=== PATIENT | female | born 1995 | race Caucasian/White ===

== ENCOUNTER → 2024-08-26 15:09 | Outpatient (CLI) | payer OTHER, SELFPAY ==
[2024-08-26 20:49] LABS: Urine Chlamydia NOT DETECTED; Urine N gonorrhoeae NOT DETECTED
== END ==
PROVIDERS: Visit Provider Student in an Organized Health Care Education/Training Program
DX: Z11.3 Encounter for screening for infections with a predominantly sexual mode of transmission (principal)
CPT/HCPCS: 87491; 87591

== ENCOUNTER → 2024-08-26 15:29 | Outpatient (CLI) | payer OTHER, SELFPAY ==
[2024-08-26 16:41] LABS: Add Manual Diff / Slide Review NO; Basophils Absolute Auto 0 /uL (0-100); Basophils Percent Auto 0.5 % (0-2); Eosinophils Absolute Auto 0 /uL (0-450); Eosinophils Percent Auto 0.6 % (2-4); Hematocrit 41.6 % (36-46); Hemoglobin 14.5 g/dL (12.0-16.0); Lymphocytes Absolute Auto 2000 /uL (1100-4500); Lymphocytes Percent Auto 26.1 % (25-40); Mean Corpuscular HGB Conc 34.9 % (30-36); Mean Corpuscular Hemoglobin 32.3 PG (26-34); Mean Corpuscular Volume 92.5 fL (80-100); Monocytes Absolute Auto 400 /uL (0-900); Monocytes Percent Auto 4.8 % (3-14); Neutrophils Absolute Auto 5200 /uL (1500-7000); Platelet Count 256 X10^3/uL (150-400); White Blood Cell Count 7.7 X10^3/uL (4.5-11.0)
[2024-08-26 17:43] LABS: Hepatitis B Surface Antigen NEGATIVE s/c (NEGATIVE); Rubella Antibody IgG 16.9 IU/mL (>15)
[2024-08-26 17:56] LABS: HIV 1 & 2 Ab/Ag 4th Gen Combo NEGATIVE (NEGATIVE); Hep C Virus Ab w/Reflex Quant NEGATIVE s/c (NEGATIVE)
[2024-08-28 05:15] LABS: RPR Screen Non Reactive (Non Reactive)
[2024-08-28 06:07] LABS: Varicella IgG Antibody Reactive (Non Reactive)
== END ==
PROVIDERS: Referring Provider Student in an Organized Health Care Education/Training Program; Visit Provider Student in an Organized Health Care Education/Training Program
DX: Z34.80 Encounter for supervision of other normal pregnancy, unspecified trimester (principal); Z11.3 Encounter for screening for infections with a predominantly sexual mode of transmission
CPT/HCPCS: 36415; 80055; 86787; 86803; 86850; 86900; 86901; 87389; 87491; 87591

== ENCOUNTER → 2024-09-03 14:14 | Outpatient (CLI) | payer OTHER, SELFPAY ==
[2024-09-03 15:32] LABS: Natera Collection Specimen Collected
== END ==
PROVIDERS: Referring Provider Student in an Organized Health Care Education/Training Program; Visit Provider Student in an Organized Health Care Education/Training Program
DX: Z34.81 Encounter for supervision of other normal pregnancy, first trimester (principal); Z3A.10 10 weeks gestation of pregnancy
CPT/HCPCS: 36415

== ENCOUNTER → 2024-11-11 14:58 | Outpatient (CLI) | payer OTHER, SELFPAY ==
--- NOTE | 2024-11-11 14:58 | DI.US.S_ITS ---
PROCEDURE: US OB >= 14 WEEKS FETUS INDICATIONS: 20 week anatomy scan OUTSIDE/PRIOR DATING DATA: Last menstrual period (LMP): 06/23/2024. LMP-based estimated date of delivery (SMITH): 03/30/2025. First dating scan (date and location): 08/26/2024. Estimated date of delivery (SMITH) from first dating scan: 04/01/2025. The calculations are made using the clinical SMITH of 03/30/2025. TECHNIQUE: Real-time scanning was performed of the fetus, with image documentation and biometric measurements. Endovaginal scanning: Not performed COMPARISON: [facility], , OB >= 14 WEEKS FETUS, 10/04/2024, 16:14. FINDINGS: General: A single living intrauterine gestation is present. Presentation: Breech. Placenta: Placental position is posterior , placenta appears low lying, approximately 1.4-2.1 centimeters from the internal Oz. Amniotic fluid index: 10 cm, normal range is 5-24 cm. Single deepest vertical pocket is 3.5 cm. heart rate: 137 beats per minute. Maternal cervical canal: 3.6 cm long. Normal lower limit is 2.5 cm. biometrics: Biparietal diameter: 4.4 centimeters, 19 weeks 2 days Head circumference: 17.4 centimeters, 20 weeks 0 days Abdominal circumference: 16.1 centimeters, 21 weeks 1 day Femur length: 3.4 centimeters, 20 weeks 6 days Clinically estimated gestational age: 20 weeks 1 day Composite gestational age from present scan: 20 weeks 2 days Estimated weight and percentile: 380 grams, 82 percent Anatomic survey: Neuro: Ventricles are non-dilated at less than 10 mm. Cisterna magna is normal at 3-11 mm. Cerebellum is normal in size and morphology. Nuchal skin fold: Normal at less than 6 mm between 14-21 weeks gestational age. Face: Nose and lips are normal. Facial profile is not well seen. Spine: No evidence for spina bifida. Heart: Four-chamber heart and outflow tracts are not well seen. Diaphragm: Diaphragm is intact. Stomach: Left-sided stomach is present. Kidneys: No hydronephrosis. Normal is less than 5 mm in 2nd trimester, less than 7 mm in 3rd trimester. Cord: 3-vessel cord has orthotopic insertion. Bladder: Normal in size. Extremities: All 4 extremities identified. IMPRESSION: 1. Single live intrauterine consistent with 20 weeks and 2 days. 2. Placenta appears low lying approximately 1.4 - 2.1 centimeters from the internal os. Recommend short-term follow-up with transvaginal exam. 3. The four-chamber heart, outflow tracts and facial profile are not well seen. Recommend short-term follow-up ultrasound. The remainder of the anatomic survey is within normal limits. We strive to produce accurate, complete, and clear reports of imaging services. To assist us in improving patient care, this report was composed using standard report templates and voice recognition software. Therefore, it may contain abnormal punctuation, insertions and/or omissions. Occasional wrong-word or sound-alike substitutions may occur. Though we review the report and make efforts to correct it, we do recommend that the report be read carefully in proper context to recognize any text inaccuracies. Dictated by: Joselo Ross M.D. on 11/12/2024 at 9:12 Approved by: Joselo Ross M.D. on 11/12/2024 at 9:17
== END ==
PROVIDERS: Referring Provider Student in an Organized Health Care Education/Training Program; Visit Provider Student in an Organized Health Care Education/Training Program
DX: Z36.0 Encounter for antenatal screening for chromosomal anomalies (principal); Z3A.20 20 weeks gestation of pregnancy
CPT/HCPCS: 76811

== ENCOUNTER → 2024-11-26 13:33 | Outpatient (CLI) | payer OTHER, SELFPAY ==
--- NOTE | 2024-11-26 13:34 | DI.US.S_ITS ---
PROCEDURE: US OB FOLLOW UP INDICATIONS: Anatomy scan f/u OUTSIDE/PRIOR DATING DATA: Last menstrual period (LMP): 06/23/2024. LMP-based estimated date of delivery (SMITH): 03/30/2025. First dating scan (date and location): 08/26/2024. Estimated date of delivery (SMITH) from first dating scan: 04/01/2025. The calculations are made using the working SMITH of 03/30/2025. TECHNIQUE: Real-time scanning was performed of the fetus, with image documentation and biometric measurements. Endovaginal scanning: No COMPARISON: None. FINDINGS: General: A single living intrauterine gestation is present. Presentation: Variable Placenta: Placental position is posterior , without previa. Amniotic fluid index: 10.5 cm, normal range is 5-24 cm. Single deepest vertical pocket is 3.7 cm. heart rate: 160 beats per minute. Maternal cervical canal: 3.3 cm long. Normal lower limit is 2.5 cm. biometrics: Clinically estimated gestational age: 22 week 2 day Anatomic survey: Facial profile, cardiac four-chamber and outflow track well visualized and within normal limits. IMPRESSION: Single live intrauterine consistent with 22 week 2 day gestation. Facial profile and cardiac views are within normal limits completing a normal anatomic survey Approved by: Grant Morris M.D. on 11/26/2024 at 17:41
== END ==
PROVIDERS: Referring Provider Student in an Organized Health Care Education/Training Program; Visit Provider Student in an Organized Health Care Education/Training Program
DX: Z34.82 Encounter for supervision of other normal pregnancy, second trimester (principal); Z3A.22 22 weeks gestation of pregnancy
CPT/HCPCS: 76816

== ENCOUNTER → 2025-01-01 11:59 | Outpatient (CLI) | payer OTHER, SELFPAY ==
[2025-01-01 14:59] LABS: Hematocrit 39.4 % (36-46); Hemoglobin 13.6 g/dL (12.0-16.0)
[2025-01-01 15:35] LABS: GTT (PREG) 1 Hour PP 50gm Dose 116 mg/dL (76-139)
== END ==
PROVIDERS: Referring Provider Student in an Organized Health Care Education/Training Program; Visit Provider Student in an Organized Health Care Education/Training Program
DX: Z13.1 Encounter for screening for diabetes mellitus (principal); Z13.0 Encounter for screening for diseases of the blood and blood-forming organs and certain disorders involving the immune mechanism
CPT/HCPCS: 36415; 82950; 85014; 85018

== ENCOUNTER 2025-02-15 14:32 | Observation (INO) | payer OTHER, SELFPAY ==
--- NOTE | 2025-02-15 15:22 | DI.US.S_ITS ---
PROCEDURE: US OB LIMITED INDICATIONS: BLEEDING OUTSIDE/PRIOR DATING DATA: Working SMITH is 03/30/2025 TECHNIQUE: Real-time scanning was performed of the fetus, with image documentation. Endovaginal scanning: Yes COMPARISON: None. FINDINGS: A single living intrauterine gestation is present. Presentation: Vertex. Placenta: Placental position is posterior, without previa. Amniotic fluid index: 7.4 cm, normal range is 5-24 cm. Single deepest vertical pocket is 4.1 cm. heart rate: 152 beats per minute. Maternal cervical canal: 4.3 cm long. Normal lower limit is 2.5 cm. Clinically estimated gestational age: 33 weeks and 6 days No definite abruption identified. Prominent urinary bladder IMPRESSION: No definite abruption identified on ultrasound. ELIOT measures 7.4 cm, lower limit of normal. Prominent urinary bladder. Follow-up imaging is suggested for these findings Vertex presentation. Dictated by: Geoffrey Stringer M.D. on 02/15/2025 at 16:15 Approved by: Geoffrey Stringer M.D. on 02/15/2025 at 16:17
[2025-02-15 15:38] LABS: Bilirubin Urine UA NEGATIVE (NEGATIVE); Color Urine UA YELLOW; Glucose Urine UA NEGATIVE (Negative); Ketones Urine UA 1+ (NEGATIVE); Leukocyte Esterase Urine UA 3+ (NEGATIVE); Nitrite Urine UA NEGATIVE (Negative); Occult Blood Urine UA 3+ (Negative); Protein Urine UA NEGATIVE (Negative); Specific Gravity Urine UA 1.020 (1.000-1.035); Urobilinogen Urine UA 0.2 E.U./dL (0.2)
[2025-02-15 15:44] LABS: Appearance Urine UA CLOUDY; pH Urine UA 6.0 (4.5-8.0)
[2025-02-15 15:51] LABS: Culture Indicated Urine Specimen Cultured
--- NOTE | 2025-02-15 16:57 | P.TNLD_ITS ---
Visit Information Visit Information Date of evaluation: 02/15/25 Primary OB Provider: Archana Carvajal On-call OB Provider: Brian Aguilar Reason for Evaluation: Yes other Vital Signs Vital Signs: 29-year-old at GA 33+6 weeks. Presents with complaint of pelvic cramping and BRB when wiping after void. Denies recent intercourse or other vaginal insertion. Endorses normal movement, denies leakage of fluid. course notable for previous low-lying placenta that has now resolved. Chart review notable for previous episodes of vaginal spotting/bleeding with no clear source identified. [facility] Surgical History (Updated 08/08/24 @ 13:06 by Bess Saunders RN) No pertinent past surgical history Social History marital status: number of children: 1 household members: spouse and children lives independently: Yes caregiver/support person: Yes housing: house pets and animals: No education level: high school occupational status: unemployed current occupational exposures/hazards: No special bladimir needs: No travel history: over 6 months ago seatbelt use: always water heater temp set < 120 deg: No (will ask to turn it down) working smoke detector in home: Yes fire extinguisher in home: Yes carbon monox detector in home: Yes firearms in home: No do you feel safe at home: Yes second hand exposure: Yes ( vapes outside) alcohol intake: never substance use type: does not use during the past year weight has: remained stable well-balanced diet: about half the time daily servings fruits/ve-4 caffeine: No Type(s) of exercise: walking duration: 15-30 minutes/day Review of Systems Review of Systems ROS: Yes All systems reviewed with the patient and are negative except as otherwise documented Objective Labs Labs: Laboratory Results - last 24 hr 02/15/25 14:45 Urine Color Yellow Urine Appearance Cloudy Urine pH 6.0 Ur Specific [place] 1.020 Urine Protein Negative Urine Glucose (UA) Negative Urine Ketones 1+ H Urine Occult Blood 3+ H Urine Nitrate Negative Urine Bilirubin Negative Urine Urobilinogen 0.2 Ur Leukocyte Esterase 3+ H Urine RBC 10-30/hpf H Urine WBC 30-100/hpf H Ur Squamous Epith Cells 5-10 /hpf H Urine Bacteria Many (>30) H Ur Culture Indicated? Specimen cultured Vol Urine Centrifuged 10ml (spun) Evaluation Evaluation Baseline heart rate: 150 Variability: Moderate (6-25) monitor accelerations: Present Monitor Decelerations: Absent Category of Tracing: Reactive Status: Category l Diagnosis, Plan/Disposition Final Diagnosis (1) UTI in : Status: Acute (2) Vaginal bleeding during : Status: Acute Plan/Disposition Plan: NST reactive with category 1 FHT. Ultrasound demonstrates adequate ELIOT and normal cervical length with no evidence of abruption. No blood on removal of transvaginal probe, source unlikely vaginal. UA grossly abnormal with large RBC, WBC, and leuk esterase indicating likely UTI. Treat with empiric Keflex, monitor culture for sensitivities. Discharge home with return precautions. OB Disposition: home
[2025-02-15 18:47] LABS: Urine N gonorrhoeae NOT DETECTED
[2025-02-15 18:51] LABS: Urine Chlamydia NOT DETECTED
== END 2025-02-15 17:31 | disposition home or self-care (01) ==
PROVIDERS: Admitting Provider Obstetrics & Gynecology; Referring Provider Obstetrics & Gynecology; Visit Provider Family Medicine
DX: O23.43 Unspecified infection of urinary tract in pregnancy, third trimester (principal); N39.0 Urinary tract infection, site not specified; O46.93 Antepartum hemorrhage, unspecified, third trimester; Z3A.33 33 weeks gestation of pregnancy
CPT/HCPCS: 59025; 76815; 76817; 81001; 87086; 87491; 87591; G0378; G0379

== ENCOUNTER 2025-02-28 13:26 | Outpatient (CLI) | payer OTHER, SELFPAY ==
--- NOTE | 2025-02-28 13:57 | P.TNLD_ITS ---
Visit Information Visit Information Date of evaluation: 02/28/25 Primary OB Provider: Archana Carvajal On-call OB Provider: Archana Carvajal Reason for Evaluation: Yes other Comments/Additional reasons for admission: triage assessment, decreased FM Vital Signs Vital Signs: maternal VSS wnl/afebrile, reviewed in OBIX [facility] Surgical History (Updated 08/08/24 @ 13:06 by Bess Saunders RN) No pertinent past surgical history Social History marital status: number of children: 1 household members: spouse and children lives independently: Yes caregiver/support person: Yes housing: house pets and animals: No education level: high school occupational status: unemployed current occupational exposures/hazards: No special bladimir needs: No travel history: over 6 months ago seatbelt use: always water heater temp set < 120 deg: No (will ask to turn it down) working smoke detector in home: Yes fire extinguisher in home: Yes carbon monox detector in home: Yes firearms in home: No do you feel safe at home: Yes second hand exposure: Yes ( vapes outside) alcohol intake: never substance use type: does not use during the past year weight has: remained stable well-balanced diet: about half the time daily servings fruits/ve-4 caffeine: No Type(s) of exercise: walking duration: 15-30 minutes/day Evaluation Evaluation Baseline heart rate: 145 Variability: Minimal (3-5) monitor accelerations: Present Monitor Decelerations: Absent Uterine Contraction Intensity: Mild Category of Tracing: Reactive Status: Category ll Comments: +accels but borderline minimal variability BPP ordered --> 8/8 GBS swab collected routine precautions, return 03/03 for interval NST
--- NOTE | 2025-02-28 13:58 | DI.US.S_ITS ---
PROCEDURE: US OB BIOPHYSICAL PROFILE INDICATIONS: decreased movement OUTSIDE/PRIOR DATING DATA: Last menstrual period (LMP): 06/23/24 LMP-based estimated date of delivery (SMITH): 03/30/25. First dating scan (date and location): 08/26/24. Estimated date of delivery (SMITH) from first dating scan: 04/01/25. The calculations are made using the most accurate SMITH of 04/01/25. TECHNIQUE: Real-time scanning was performed of the fetus for biophysical profile, with image documentation. Color and pulse Doppler interrogation was also performed of the umbilical artery near its insertion into the placenta. Endovaginal scanning: Not needed COMPARISON: [facility], OB LIMITED, 02/15/2025, 16:21. [facility] OB FOLLOW UP, 11/26/2024, 14:09. [facility] OB >= 14 WEEKS FETUS, 11/11/2024, 15:37. [facility] OB >= 14 WEEKS FETUS, 10/04/2024, 16:14. FINDINGS: General: A single living intrauterine gestation is present. Presentation: Vertex. Placenta: Placental position is posterior fundal , without previa. Amniotic fluid index: 9.4 cm, normal range is 5-24 cm. Single deepest vertical pocket is 3.8 cm. heart rate: 143 beats per minute. Estimated gestational age from initial scan: 35 weeks 5 days. Biophysical profile: Tone: 2 points. Movement: 2 points. Respiration: 2 points. Largest pocket of fluid: 2 points. IMPRESSION: viability documented, normal amniotic fluid volume. Eight of 8 possible points for the biophysical profile assessment. We strive to produce accurate, complete, and clear reports of imaging services. To assist us in improving patient care, this report was composed using standard report templates and voice recognition software. Therefore, it may contain abnormal punctuation, insertions and/or omissions. Occasional wrong-word or sound-alike substitutions may occur. Though we review the report and make efforts to correct it, we do recommend that the report be read carefully in proper context to recognize any text inaccuracies. Dictated by: Mikel Espinosa M.D. on 02/28/2025 at 16:21 Approved by: Mikel Espinosa M.D. on 02/28/2025 at 16:24
[2025-03-01 13:42] LABS: Strep Grp B PCR NEG for Grp B Strep
== END 2025-02-28 14:47 | disposition home or self-care (01) ==
LOC: LABOR 13:30 → OB 17:29
PROVIDERS: Referring Provider Obstetrics & Gynecology; Visit Provider Obstetrics & Gynecology
DX: O36.8130 Decreased fetal movements, third trimester, not applicable or unspecified (principal); Z3A.35 35 weeks gestation of pregnancy
CPT/HCPCS: 59025; 76819; 87653; G0378; G0379

== ENCOUNTER 2025-03-06 16:38 | Outpatient (CLI) | payer OTHER, SELFPAY ==
[2025-03-06 18:34] LABS: Appearance Urine UA CLEAR; Bilirubin Urine UA NEGATIVE (NEGATIVE); Color Urine UA YELLOW; Glucose Urine UA NEGATIVE (Negative); Ketones Urine UA NEGATIVE (NEGATIVE); Leukocyte Esterase Urine UA NEGATIVE (NEGATIVE); Nitrite Urine UA NEGATIVE (Negative); Occult Blood Urine UA NEGATIVE (Negative); Protein Urine UA NEGATIVE (Negative); Specific Gravity Urine UA <=1.005 (1.000-1.035); Urobilinogen Urine UA 0.2 E.U./dL (0.2)
[2025-03-06 18:35] LABS: pH Urine UA 6.0 (4.5-8.0)
[2025-03-06 18:46] LABS: Culture Indicated Urine Cult Not Indicated
== END 2025-03-06 18:35 | disposition home or self-care (01) ==
LOC: LABOR 17:34 → OB 03-10 10:59
PROVIDERS: Referring Provider Student in an Organized Health Care Education/Training Program; Visit Provider Student in an Organized Health Care Education/Training Program
DX: O26.893 Other specified pregnancy related conditions, third trimester (principal); M54.50 Low back pain, unspecified; Z3A.36 36 weeks gestation of pregnancy
CPT/HCPCS: 59025; 81001; 84112; 87210; G0378; G0379